=== PATIENT | male | born 1990 | race Caucasian/White ===

== ENCOUNTER 2017-02-03 13:10 | Emergency (ER) | payer BC ==
[~2017-02-03] VITALS: Ht 188 cm; Wt 84.1 kg
[2017-02-03 13:11] VITALS: BP 133/72; PULSE 62; TEMP 99
[2017-02-03] MEDS ORDERED: ZYRTEC 10MG10 MG PO (13:15)
== END 2017-02-03 15:41 | disposition home or self-care (01) ==
LOC: COL.ER 13:10
DX: S90.32XA Contusion of left foot, initial encounter (principal); S80.02XA Contusion of left knee, initial encounter; M25.561 Pain in right knee; S80.212A Abrasion, left knee, initial encounter; S80.211A Abrasion, right knee, initial encounter; S80.812A Abrasion, left lower leg, initial encounter; V13.4XXA Pedal cycle driver injured in collision with car, pick-up truck or van in traffic accident, initial encounter; Y92.410 Unspecified street and highway as the place of occurrence of the external cause